=== PATIENT | female | born 1950 | race Caucasian/White ===

== ENCOUNTER → 2016-04-30 | Outpatient (CLI) | payer MEDICARE ==
[~2016-04-30] MED LIST: ACHYD1T PO; CIPR-120 PO; CYCL10TA9 PO; FAMO10TA43 PO; FLC100T1 PO; NF-ESOM40C PO; NITR100C44 PO; ONDA8TAB13 PO; OXYC-12 PO; PANT40TA2 PO; PHEN100T17 PO; PHEN200T27 PO; PRD20T PO; SCP1.5TD TD; TRAM50TA2 PO
--- NOTE | 2016-04-30 12:29 | Diagnostic Imaging Report ---
PROCEDURE: CT urinary tract, rule out kidney stone. TECHNIQUE: Multiple contiguous axial images were obtained through the abdomen and pelvis without the use of intravenous contrast. INDICATION: Bilateral flank pain. Hematuria. COMPARISON: 07/14/2015. FINDINGS: The lung bases are clear. No pericardial or pleural effusion. Stable slight asymmetric cortical atrophy of the right kidney with irregular surface contour, which may relate to global chronic vascular insult or prior infection. No renal or ureteral calculi. No obstructive uropathy on either side. The urinary bladder is distended without focal wall thickening and there are no intraluminal calculi. Uterus and ovaries are normal in appearance for patient's age. Evaluation of the abdominal viscera is mildly limited without IV contrast. Allowing for this, liver, spleen, pancreas, and adrenals are normal. The stomach is decompressed. No bowel obstruction. Cholecystectomy. No pericolonic inflammatory changes. The appendix is normal. No free intraperitoneal air or fluid. Normal caliber abdominal aorta. No abdominal or pelvic lymphadenopathy. No concerning osseous lesions. IMPRESSION: No acute intra-abdominal process. Specifically, no obstructive uropathy or urinary tract calculi. Dictated by: Dictated on workstation # [id number]
== END ==
LOC: RAD 11:00
PROVIDERS: ATTEND Nurse Practitioner
DX: R10.84 Generalized abdominal pain (principal); R31.9 Hematuria, unspecified; Z87.442 Personal history of urinary calculi
CPT/HCPCS: 74176

== ENCOUNTER → 2018-06-16 | Outpatient (CLI) | payer MEDICARE, OTHER | LOC: CARD 08:03 | PROVIDERS: ATTEND Family Medicine | DX: I10 Essential (primary) hypertension (principal); R01.1 Cardiac murmur, unspecified; I07.1 Rheumatic tricuspid insufficiency | CPT/HCPCS: 93306 ==

== ENCOUNTER 2018-09-11 14:58 | Emergency (ER) | payer MEDICARE, OTHER ==
[~2018-09-11] VITALS: Ht 157.5 cm; Wt 72.6 kg
[2018-09-11] MEDS ORDERED: LACTATED RINGERS 1,000 ML IV ONE (15:26)
[2018-09-11] MEDS ORDERED: KETOROLAC 30 MG/ML VIAL IVP STA (15:26)
[2018-09-11 15:47] LABS: BASOPHILS % (AUTO) 0 % (0-10); EOSINOPHILS % (AUTO) 1 % (0-10); HEMATOCRIT 44 % (35-52); HEMOGLOBIN 14.7 G/DL (11.5-16.0); LYMPHOCYTES # (AUTO) 1.2 X 10^3 (1.0-4.0); LYMPHOCYTES % (AUTO) 19 % (12-44); MEAN CORPUSCULAR HEMOGLOBIN 32 PG (25-34); MEAN CORPUSCULAR HGB CONC 34 G/DL (32-36); MEAN CORPUSCULAR VOLUME 95 FL (80-99); MEAN PLATELET VOLUME 9.8 FL (7.4-10.4); MONOCYTES # (AUTO) 0.7 X 10^3 (0.0-1.0); MONOCYTES % (AUTO) 12 % (0-12); NEUTROPHILS # (AUTO) 4.4 X 10^3 (1.8-7.8); NEUTROPHILS % (AUTO) 69 % (42-75); PLATELET COUNT 230 10^3/uL (130-400); RED CELL DISTRIBUTION WIDTH 12.2 % (10.0-14.5); WHITE BLOOD COUNT 6.4 10^3/uL (4.3-11.0)
[2018-09-11 15:55] LABS: BILIRUBIN,URINE NEGATIVE (NEGATIVE); CLARITY,URINE CLEAR; COLOR,URINE YELLOW; GLUCOSE, URINE (UA) NEGATIVE (NEGATIVE); KETONES,URINE NEGATIVE (NEGATIVE); LEUKOCYTE ESTERASE ,URINE 1+ (NEGATIVE); NITRITE,URINE NEGATIVE (NEGATIVE); PH,URINE 7 (5-9); PROTEIN,URINE NEGATIVE (NEGATIVE); UROBILINOGEN,URINE NORMAL (NORMAL)
[2018-09-11 15:59] LABS: BACTERIA,URINE TRACE /HPF; WBC,URINE 0-2 /HPF
--- NOTE | 2018-09-11 16:08 | Diagnostic Imaging Report ---
INDICATION: Abdominal pain. COMPARISON: None available. TECHNIQUE: KUB. FINDINGS: Nonobstructive bowel gas pattern. No features of free intraperitoneal air on limited supine imaging. No abnormal soft tissue mineralizations to suggest renal or ureteral calculi by radiography. Small volume of colonic stool could be physiologic. Normal regional skeleton. IMPRESSION: No acute abnormality in the abdomen by radiography. Dictated by: Dictated on workstation # [id number]
[2018-09-11 16:09] LABS: ALBUMIN 4.1 GM/DL (3.2-4.5); BILIRUBIN,TOTAL 0.5 MG/DL (0.1-1.0); CALCIUM 9.5 MG/DL (8.5-10.1); CREATININE SERUM 1.29 MG/DL (0.60-1.30); POTASSIUM 3.6 MMOL/L (3.6-5.0); TOTAL PROTEIN 6.8 GM/DL (6.4-8.2)
--- NOTE | 2018-09-11 16:18 | Diagnostic Imaging Report ---
PROCEDURE: CT urinary tract, rule out kidney stone. TECHNIQUE: Multiple contiguous axial images were obtained through the abdomen and pelvis without the use of intravenous contrast. Auto Exposure Controls were utilized during the CT exam to meet ALARA standards for radiation dose reduction. INDICATION: Right flank pain. History of kidney stones. COMPARISON: 04/30/2016. FINDINGS: Lung bases are clear. The liver, pancreas, spleen, adrenals, left kidney, collecting systems and bladder are negative. No evidence of appendicitis. Stable cortical thinning of the right kidney. Mild scattered atherosclerotic calcifications. Cholecystectomy. No free intraperitoneal air or fluid. No lymphadenopathy. No evidence of bowel obstruction. Osseous structures are intact. Moderate to advanced degenerative endplate changes at L5-S1. No acute osseous findings. IMPRESSION: No acute CT findings in the abdomen or pelvis. Specifically, no evidence of renal stones or hydronephrosis. Dictated by: Dictated on workstation # [id number]
--- NOTE | 2018-09-11 16:28 | ED Back Pain ---
General Chief Complaint: Back Problems Stated Complaint: BACK PAIN Nursing Triage Note: pt c/o back pain last noc that went away and started to c/o " bladder" pain today. has h/o kidney stones. Nursing Sepsis Screen: No Definite Risk Source of Information: Patient History of Present Illness Date Seen by Provider: Sep 11, 2018 Time Seen by Provider: 15:20 Initial Comments PT ARRIVES VIA POV FROM HOME PT STATES SHE THINKS SHE IS PASSING A KIDNEY STONE C/O RIGHT FLANK PAIN FOR THE LAST 2 DAYS PAIN WENT AWAY LAST PM, THEN CAME BACK TODAY BUT NOT BAD STATES TODAY, SHE HAS BEEN HAVING "SPASMS" IN RLQ/RIGHT UNGUINAL AREA NOTHING WORSENS OR IMPROVES SYMPTOMS HAD MILD WAVES OF NAUSEA YESTERDAY BUT NONE TODAY NO PROBLEMS URINATING NO FEVER HAS NOT TAKEN ANYTHING FOR PAIN HAS HISTORY OF KIDNEY STONES--HAD LITHOTRIPSY FOLLOWED BY URETERAL STENT AND LATER REMOVAL OF STENT --DONE IN [place]. INITIALLY SEEN BY DR. ANNE, WHO THEN REFERRED HER TO [place] Other Comments PCP: DR. SANABRIA Allergies and Home Medications Allergies Coded Allergies: Sulfa (Sulfonamide Antibiotics) (Unverified Allergy, Unknown, 05/02/13) erythromycin base (Unverified Allergy, Unknown, 01/19/14) Home Medications Cyclobenzaprine HCl 10 Mg Tablet, 10 MG PO Q8H Prescribed by: TYRON STARR on 09/11/18 1630 Ketorolac Tromethamine 10 Mg Tablet, 10 MG PO Q6H Prescribed by: TYRON STARR on 09/11/18 1630 Pantoprazole Sodium 40 Mg Tablet.dr 40 MG PO DAILY PRN for HEARTBURN Prescribed by: DANA BERMEO on 11/05/15 1206 Patient Home Medication List Home Medication List Reviewed: Yes Review of Systems Constitutional: no symptoms reported; No fever Respiratory: no symptoms reported Cardiovascular: no symptoms reported Gastrointestinal: see HPI, abdominal pain; No constipation, No diarrhea, No lo ss of appetite; nausea; No vomiting Genitourinary: see HPI (FLANK PAIN ); No dysuria Musculoskeletal: see HPI, back pain Skin: no symptoms reported Psychiatric/Neurological: No Symptoms Reported Past [id number] Hx Patient Social History Alcohol Use: Denies Use Recreational Drug Use: No Smoking Status: Never a Smoker Recent Foreign Travel: No Contact w/Someone Who Travel: No Recent Infectious Disease Expo: No Physical Abuse: No Sexual Abuse: No Past Medical History Surgeries: Yes (LITHOTRIPSY / URETERAL STENT WITH LATER REMOVAL) Section, Gallbladder, Hysterectomy, Renal, Tonsillectomy Respiratory: No Cardiac: No Neurological: No Genitourinary: Yes Kidney Stones Gastrointestinal: Yes (HX STOMACH ULCERS) Ulcer Musculoskeletal: No Endocrine: No Cancer: No Psychosocial: No Integumentary: No Blood Disorders: No Family Medical History No Pertinent Family Hx Physical Exam Vital Signs Vital Signs - First Documented 09/11/18 15:05 Temp 98.3 Pulse 76 Resp 16 B/P (MAP) 175/91 (119) Pulse Ox 97 O2 Delivery Room Air Capillary Refill : Less Than 3 Seconds Height, Weight, BMI Height: 5'2.00" Weight: 160lbs. 0.0oz. 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 Norm as Tested Skin: Normal Color, Warm/Dry; No Rash Progress/Results/Core Measures Results/Orders Lab Results Laboratory Tests Test 09/11/18 15:41 Range/Units White Blood Count 6.4 4.3-11.0 10^3/uL Red Blood Count 4.58 4.35-5.85 10^6/uL Hemoglobin 14.7 11.5-16.0 G/DL Hematocrit 44 35-52 % Mean Corpuscular Volume 95 80-99 FL Mean Corpuscular Hemoglobin 32 25-34 PG Mean Corpuscular Hemoglobin Concent 34 32-36 G/DL Red Cell Distribution Width 12.2 10.0-14.5 % Platelet Count 230 130-400 10^3/uL Mean Platelet Volume 9.8 7.4-10.4 FL Neutrophils (%) (Auto) 69 42-75 % Lymphocytes (%) (Auto) 19 12-44 % Monocytes (%) (Auto) 12 0-12 % Eosinophils (%) (Auto) 1 0-10 % Basophils (%) (Auto) 0 0-10 % Neutrophils # (Auto) 4.4 1.8-7.8 X 10^3 Lymphocytes # (Auto) 1.2 1.0-4.0 X 10^3 Monocytes # (Auto) 0.7 0.0-1.0 X 10^3 Eosinophils # (Auto) 0.0 0.0-0.3 10^3/uL Basophils # (Auto) 0.0 0.0-0.1 10^3/uL Urine Color YELLOW Urine Clarity CLEAR Urine pH 7 5-9 Urine Specific [place] 1.010 L 1.016-1.022 Urine Protein NEGATIVE NEGATIVE Urine Glucose (UA) NEGATIVE NEGATIVE Urine Ketones NEGATIVE NEGATIVE Urine Nitrite NEGATIVE NEGATIVE Urine Bilirubin NEGATIVE NEGATIVE Urine Urobilinogen NORMAL NORMAL MG/DL Urine Leukocyte Esterase 1+ H NEGATIVE Urine RBC (Auto) NEGATIVE NEGATIVE Urine RBC NONE /HPF Urine WBC 0-2 /HPF Urine Squamous Epithelial Cells 5-10 /HPF Urine Crystals NONE /LPF Urine Bacteria TRACE /HPF Urine Casts NONE /LPF Urine Mucus NEGATIVE /LPF Urine Culture Indicated NO Sodium Level 140 135-145 MMOL/L Potassium Level 3.6 3.6-5.0 MMOL/L Chloride Level 102 98-107 MMOL/L Carbon Dioxide Level 26 21-32 MMOL/L Anion Gap 12 5-14 MMOL/L Blood Urea Nitrogen 16 7-18 MG/DL Creatinine 1.29 0.60-1.30 MG/DL Estimat Glomerular Filtration Rate 41 BUN/Creatinine Ratio 12 Glucose Level 95 70-105 MG/DL Calcium Level 9.5 8.5-10.1 MG/DL Corrected Calcium 9.4 8.5-10.1 MG/DL Total Bilirubin 0.5 0.1-1.0 MG/DL Aspartate Amino Transf (AST/SGOT) 20 5-34 U/L Alanine Aminotransferase (ALT/SGPT) 21 0-55 U/L Alkaline Phosphatase 94 40-136 U/L Total Protein 6.8 6.4-8.2 GM/DL Albumin 4.1 3.2-4.5 GM/DL Amylase Level 32 25-125 U/L Lipase 40 8-78 U/L My Orders Orders - MATTY,TYRON K DO Ua Culture If Indicated (8/3/19 15:19) Ed Iv/Invasive Line Start (09/11/18 15:26) Ct Abd/Pelvis Wo(Kidney Stone) (09/11/18 15:26) Abdomen/Kub 1view (09/11/18 15:26) Amylase (09/11/18 15:26) Cbc With Automated Diff (09/11/18 15:26) Comprehensive Metabolic Panel (09/11/18 15:26) Lipase (09/11/18 15:26) Ed Iv/Invasive Line Start (09/11/18 15:26) Lactated Ringers (Lr 1000 Ml Iv Solution (09/11/18 15:26) Ketorolac Injection (Toradol Injection) (09/11/18 15:26) Medications Given in ED Current Medications Medications Dose Ordered Sig/Quin Route Start Time Stop Time Status Last Admin Dose Admin Lactated Ringer's 1,000 ml @ 0 mls/hr Q0M ONCE IV 09/11/18 15:26 09/11/18 15:28 DC 09/11/18 15:46 999 MLS/HR Vital Signs/I&O 09/11/18 15:05 Temp 98.3 Pulse 76 Resp 16 B/P (MAP) 175/91 (119) Pulse Ox 97 O2 Delivery Room Air Blood Pressure Mean: 119 Progress Progress Note : Progress Note PAIN EASED WITH TORADOL UNEVENTFUL ER STAY Diagnostic Imaging Comments ABDOMEN XRAYS--NO ACUTE PROCESS CT ABDOMEN/PELVIS--NO ACUTE PROCESS PER RADIOLOGIST REPORTS AT 1623 Reviewed: Reviewed by Me Departure Impression Primary Impression: RIGHT FLANK AND RLQ PAIN Disposition: HOME, SELF-CARE Condition: Improved Departure-Patient Inst. Referrals: JASSI SANABRIA DO (PCP/Family) Primary Care Physician Patient Instructions: Flank Pain (DC) Add. Discharge Instructions: LOTS OF CLEAR LIQUIDS FOLLOW UP WITH YOUR DR ON THURSDAY IF NO BETTER, RETURN TO ER IF WORSE All discharge instructions reviewed with patient and/or family. Voiced understanding. Scripts Cyclobenzaprine HCl (Cyclobenzaprine HCl) 10 Mg Tablet 10 MG PO Q8H, #15 TAB Prov: TYRON STARR DO 09/11/18 Ketorolac Tromethamine (Ketorolac Tromethamine) 10 Mg Tablet 10 MG PO Q6H for Pain, #15 TAB Prov: TYRON STARR DO 09/11/18 TYRON STARR DO Sep 11, 2018 16:28
[2018-09-11] MEDS ORDERED: KETO10TA PO (16:30)
[2018-09-11] MEDS ORDERED: CYCL10TA9 PO (16:30)
[2018-09-11 17:01] VITALS: BP 191/86
== END 2018-09-11 17:01 | disposition home or self-care (01) ==
LOC: EDUNIT# 14:58 → ER 14:59
DX: R10.31 Right lower quadrant pain (principal); Z87.442 Personal history of urinary calculi; Z88.2 Allergy status to sulfonamides; Z88.1 Allergy status to other antibiotic agents; Z90.89 Acquired absence of other organs; Z90.710 Acquired absence of both cervix and uterus; Z87.19 Personal history of other diseases of the digestive system
CPT/HCPCS: 36415; 74018; 74176; 80053; 81000; 82150; 83690; 85025; 96361; 96374